=== PATIENT | female | born 1965 | race Caucasian/White ===

== ENCOUNTER 2017-08-22 15:58 | Outpatient (CLI) | payer BC | END 2017-08-22 15:59 | disposition home or self-care (01) | LOC: BICULT 15:58 | PROVIDERS: ATTEND Family Medicine | DX: R60.9 Edema, unspecified (principal) ==

== ENCOUNTER 2018-01-01 19:30 | Outpatient (CLI) | payer BC | END 2018-01-01 19:31 | disposition home or self-care (01) | LOC: SLEEPLAB 19:30 | PROVIDERS: ATTEND Internal Medicine Pulmonary Disease | DX: G47.33 Obstructive sleep apnea (adult) (pediatric) (principal); R40.0 Somnolence; R53.83 Other fatigue; E66.9 Obesity, unspecified; R06.83 Snoring; F41.9 Anxiety disorder, unspecified; G47.00 Insomnia, unspecified; I51.89 Other ill-defined heart diseases; Z68.1 Body mass index [BMI] 19.9 or less, adult | CPT/HCPCS: 95810 ==

== ENCOUNTER 2018-01-07 12:58 | Outpatient (CLI) | payer BC ==
--- NOTE | 2018-01-07 15:28 | ULT ---
RENAL ULTRASOUND: HISTORY: Renal calculi. FINDINGS: Multiple longitudinal and transverse images of the kidneys and bladder were obtained using a Multiher tz curvilinear transducer. Real-time and color flow images are used to evaluate the kidneys. Images demonstrate both kidneys to be of normal contour, axis, and size. The right kidney measures 1 2.9 and the left kidney 13.5 cm from pole to pole. Small area of parenchymal density is seen in the lower pole of the left kidney possibly representing a small lower pole left renal calculus. This may also be artifact. No evidence of hydronephrosis seen. The urinary bladder is visualized. No definite evidence of hydr onephrosis is seen. IMPRESSION: No definite evidence of renal parenchymal lesions. No evidence of hydronephrosis seen. The urinary bladder is unremarkable and partially filled. POS: [facility]
== END 2018-01-07 12:59 | disposition home or self-care (01) ==
LOC: BICULT 12:58
PROVIDERS: ATTEND Urology
DX: N20.0 Calculus of kidney (principal); N28.1 Cyst of kidney, acquired; Q63.8 Other specified congenital malformations of kidney
CPT/HCPCS: 76770

== ENCOUNTER 2019-01-27 14:39 | Outpatient (CLI) | payer BC ==
--- NOTE | 2019-01-27 15:08 | ULT ---
BILATERAL RENAL ULTRASOUND: CLINICAL INDICATION: Renal Insufficiency COMPARISON: 01/07/2018 FINDINGS: Limited visualization of the kidneys due to overlying body wall soft tissues, which decreases sensiti vity of the evaluation. Right kidney: There are a few echogenic foci which could relate to calcifications. No associated hydr onephrosis. Left kidney: A few echogenic foci are present, which could relate to calcifications. No associated hy dronephrosis. Urinary bladder: Mild distention of the urinary bladder. IMPRESSION: There are scattered echogenic foci of the kidneys bilaterally which may relate to small calcification s. There is no overt hydronephrosis of either kidney. Limited visualization of the kidneys due to decreased acoustic penetration from overlying body wall s oft tissues which does decrease sensitivity of the evaluation. Transcribed Date/Time: 01/27/2019 3:32 PM
== END 2019-01-27 14:40 | disposition home or self-care (01) ==
LOC: BICULT 14:39
PROVIDERS: ATTEND Urology
DX: N20.0 Calculus of kidney (principal); N28.1 Cyst of kidney, acquired; Q63.8 Other specified congenital malformations of kidney
CPT/HCPCS: 36415; 76770; 80048; 81003; 81015; 84550

== ENCOUNTER 2019-05-30 15:33 | Emergency (ER) | payer BC ==
[2019-05-30 16:05] LABS: #Eosinphils 0.1 thou/uL (0.0-0.7); #Lymphocytes 1.7 thou/uL (1.20-3.40); #Monocytes 0.4 thou/uL (0.11-0.59); #Neutrophils 7.4 thou/uL (1.40-6.50); %Eosinophils 0.8 % (0.0-10.0); %Lymphocytes 17.6 % (21.0-51.0); %Monocytes 3.8 % (0.0-10.0); %Neutrophils 77.8 % (42.0-75.0); Hemoglobin 13.6 g/dL (12.0-16.0); Mean Corpuscular HGB CONC 31.9 g/dL (32.0-36.0); Mean Corpuscular Hemoglobin 24.5 pg (27.0-31.0); Mean Platelet Volume 9.4 fL (7.4-10.4); Platelet Count 255 thou/uL (130-400); RBC Distribution Width 14.8 % (11.5-14.5); Red Blood Cell (RBC) Count 5.53 mill/uL (4.20-5.40); White Blood Cell (WBC) Count 9.5 thou/uL (4.8-10.8)
[2019-05-30 16:23] LABS: Bacteria/HPF 3+ HPF (None Seen); Bilirubin Negative (Negative); Blood, Urine 3+ (Negative); Clarity Turbid (Clear); Glucose, Urine (Dipstick) Normal (Negative); Leukocyte Negative Leu/uL (Negative); Nitrite Negative (Negative); Protein, Urine (Dipstick) 100 mg/dL (Neg-Trace); RBC/HPF Greater than 50 HPF (0-3); Urobilinogen Normal mg/dL (Less than 2); WBC/HPF 0-3 HPF (0-3)
[2019-05-30 16:27] LABS: Pregnancy Test - Urine (BHCG) Negative (Negative); Pregu Control Background? CLEAR/WHITE (CLR/WHITE); Pregu Control Bar Appear? YES (CONTROL BAR); Specific Gravity 1.029 (1.002-1.036)
[2019-05-30 16:27] LABS: ALT (SGPT) 10 U/L (8-55); AST (SGOT) 14 U/L (5-34); Albumin 3.9 g/dL (3.5-5.0); Alkaline Phosphatase 87 U/L (40-110); Anion Gap 13 mmol/L (10-20); BUN (Urea Nitrogen) 15 mg/dL (9.8-20.1); Bilirubin, Total 0.7 mg/dL (0.2-1.2); Calc. Creatinine Clearance 0 mL/min (70-130); Calcium 9.3 mg/dL (7.8-10.44); Carbon Dioxide 22 mmol/L (22-29); Chloride 107 mmol/L (98-107); Estimated GFR-MDRD 75; Globulin 3.2 g/dL (2.4-3.5); Glucose 95 mg/dL (70-105); Lipase 8 U/L (8-78); Protein, Total 7.1 g/dL (6.0-8.3); Sodium 138 mmol/L (136-145)
[2019-05-30] MEDS ORDERED: Ondansetron PF 4 MG/2 ML Vial ONE (19:02)
[2019-05-30] MEDS ORDERED: Morphine 4 MG/ML VIAL ONE ×2 (19:02→22:30)
[2019-05-30] MEDS ORDERED: Ketorolac Tromethamine 30 MG/ML VIAL ONE (20:01)
== END 2019-05-30 22:57 | disposition home or self-care (01) ==
LOC: ERS 15:33
DX: N12 Tubulo-interstitial nephritis, not specified as acute or chronic (principal); I48.91 Unspecified atrial fibrillation; Z87.442 Personal history of urinary calculi; Z79.891 Long term (current) use of opiate analgesic; Z79.899 Other long term (current) drug therapy; Z79.01 Long term (current) use of anticoagulants
CPT/HCPCS: 36415; 80053; 81003; 81015; 81025; 83690; 85025; 87077; 87086; 96374; 96375; 96376; J1885; J2270; J2405

== ENCOUNTER 2019-06-24 08:35 | Outpatient (CLI) | payer BC ==
--- NOTE | 2019-06-24 10:49 | CT ---
CT ABDOMEN AND PELVIS WITHOUT CONTRAST STONE PROTOCOL: Date: 06/24/2019 HISTORY: Renal stones. COMPARISON: Stone protocol CT from 2016. FINDINGS: Lung bases are clear. No pericardial effusion. Within the right renal pelvis is an ovoid calculus blake suring 5.0 x 4.0 x 6.0 mm. No other calculus within the right renal collecting system. No hydronephro sis. Within the left renal pelvis is another ovoid ellipsoid calculus measuring 9.0 x 6.0 x 5.0 mm. N o left-sided hydronephrosis, although there is some mild fullness of the left renal pelvis with uroth elial thickening, likely sequelae of chronic inflammation. The ureters are without dilatation or calculi. Urinary bladder is without calculus. No dilated loops of large or small bowel. No retroperitoneal or periaortic adenopathy. Noncontrast evaluation of the spleen, liver, and gallbla dder are unremarkable. Fat-containing umbilical hernia. No free intraperitoneal gas or fluid. No acute osseous abnormality. IMPRESSION: Bilateral renal pelvi calculi as described. No hydroureteronephrosis. POS: [facility]
== END 2019-06-24 08:36 | disposition home or self-care (01) ==
LOC: CT 08:35
PROVIDERS: ATTEND Urology
DX: N20.0 Calculus of kidney (principal); E66.01 Morbid (severe) obesity due to excess calories; N28.1 Cyst of kidney, acquired
CPT/HCPCS: 74176; 81001; 87086

== ENCOUNTER 2019-06-30 06:22 | Day surgery (SDC) | payer BC ==
[2019-06-27 09:07] VITALS: BMI 72.6
[2019-06-30] MEDS ORDERED: Iothalamate Meglumine 60% 50 ML VIAL FS ONE (07:04)
[2019-06-30 07:35] LABS: #Eosinphils 0.1 thou/uL (0.0-0.7); #Lymphocytes 1.9 thou/uL (1.20-3.40); #Monocytes 0.5 thou/uL (0.11-0.59); #Neutrophils 5.3 thou/uL (1.40-6.50); %Basophils 0.5 % (0.0-1.0); %Eosinophils 1.7 % (0.0-10.0); %Lymphocytes 23.8 % (21.0-51.0); Hemoglobin 13.8 g/dL (12.0-16.0); Mean Corpuscular HGB CONC 32.6 g/dL (32.0-36.0); Mean Corpuscular Hemoglobin 25.3 pg (27.0-31.0); Mean Corpuscular Volume 77.6 fL (78.0-98.0); Mean Platelet Volume 8.8 fL (7.4-10.4); Platelet Count 251 thou/uL (130-400); RBC Distribution Width 15.5 % (11.5-14.5); Red Blood Cell (RBC) Count 5.46 mill/uL (4.20-5.40); White Blood Cell (WBC) Count 7.8 thou/uL (4.8-10.8)
[2019-06-30] MEDS ORDERED: Levofloxacin 500 mg/D5W 100 ml Premix Bag ONE (07:36)
[2019-06-30 07:42] LABS: Prothrombin Time 12.8 SEC (12.0-14.7)
[2019-06-30 07:58] LABS: Anion Gap 12 mmol/L (10-20); BUN (Urea Nitrogen) 10 mg/dL (9.8-20.1); Calc. Creatinine Clearance 252 mL/min (70-130); Calcium 9.1 mg/dL (7.8-10.44); Carbon Dioxide 25 mmol/L (22-29); Chloride 106 mmol/L (98-107); Estimated GFR-MDRD 71; Glucose 101 mg/dL (70-105); Potassium 4.1 mmol/L (3.5-5.1); Sodium 139 mmol/L (136-145)
--- NOTE | 2019-06-30 08:15 | RAD ---
EXAM: XR Abdomen 1 View/KUB PROVIDED CLINICAL HISTORY: Preoperative evaluation. Renal calculi. COMPARISON: CT abdomen on 06/24/2019 FINDINGS: There are calculi overlying each renal pelvis which were seen on prior CT examination. No additional suspicious calcifications are seen along the expected course of either ureter. Bowel gas pattern is nonspecific. Phleboliths overlie the pelvis. Minimal degenerative changes are seen in the spine. IMPRESSION: Bilateral renal calculi.
--- NOTE | 2019-06-30 08:31 | RAD ---
TWO VIEW CHEST: HISTORY: Preop evaluation. FINDINGS: The lung cam are clear. No infiltrate or vascular congestion. Heart and mediastinum unremarkable . IMPRESSION: No acute process. POS: [facility]
[2019-06-30] MEDS ORDERED: Midazolam HCl 2 mg/2 ml Vial ONE (08:39)
[2019-06-30] MEDS ORDERED: Fentanyl 100 MCG/2 ML VIAL ONE ×2 (08:39→10:38)
[2019-06-30] MEDS ORDERED: SUGAMMADEX SODIUM 500 MG/5 ML VIAL ONE (08:40)
[2019-06-30] MEDS ORDERED: Lidocaine 1% PF 5 ML VIAL ONE (08:53)
[2019-06-30] MEDS ORDERED: Ondansetron PF 4 MG/2 ML Vial ONE ×2 (08:53→12:38)
[2019-06-30] MEDS ORDERED: PROPOFOL 200 MG/20 ML VIAL ONE (08:53)
[2019-06-30] MEDS ORDERED: Rocuronium Bromide 10 MG/ML (10ML VIAL) ONE (08:53)
[2019-06-30] MEDS ORDERED: Succinylcholine Chloride 20 MG/ML 10 ml SYRINGE FS ONE (08:53)
[2019-06-30] MEDS ORDERED: Glycopyrrolate 0.2 MG/ML 5 ML SYRINGE ONE (08:53)
[2019-06-30] MEDS ORDERED: Promethazine HCl 25 MG/ML VIAL ONE ×2 (10:06→11:54)
--- NOTE | 2019-06-30 11:32 | RAD ---
RETROGRADE PYELOGRAM: Date: 06/30/2019 INDICATION: Bilateral lithotripsy procedure. TECHNIQUE: A total of 8 fluoroscopic images presented from OR during intraoperative imaging. FINDINGS/IMPRESSION: Initial imaging shows opacification of the right collecting structures. Final imaging shows placement of a left double pigtail ureteral stent. POS: [facility]
[2019-06-30] MEDS ORDERED: Morphine 2 MG/ML SYRINGE ONE (11:33)
--- NOTE | 2019-06-30 12:21 | OP ---
DATE OF PROCEDURE: 06/30/2019 PREOPERATIVE DIAGNOSES: 1. A 53-year-old morbidly obese female with history of bilateral renal calculi with left lower quadrant abdominal pain. 2. Stone dimensions: Right renal pelvic stone 5 x 4 x 6 mm and left renal pelvic stone 10 mm. POSTOPERATIVE DIAGNOSES: 1. A 53-year-old morbidly obese female with history of bilateral renal calculi with left lower quadrant abdominal pain. 2. Stone dimensions: Right renal pelvic stone 5 x 4 x 6 mm and left renal pelvic stone 10 mm. PROCEDURES PERFORMED: Cystoscopy, bilateral retrograde pyelogram, left balloon dilatation of distal intramural ureter, flexible ureteroscopy, pyeloscopy, laser lithotripsy of large left renal pelvic stone, basket extraction of stone fragments, 6 x 26 double-J ureteral stent placement with distal tail in situ. ANESTHESIA: LMA, general. COMPLICATIONS: None apparent. DISPOSITION: To recovery room in stable condition. SPECIMEN: Stone for chemical analysis. INDICATIONS FOR PROCEDURE AND HISTORY: Ms. Frank is a 53-year-old morbidly obese female, who weighs about 470 pounds, who presented to the emergency room to [facility], then to [facility] Emergency Room due to left lower quadrant abdominal pain. CT demonstrated large left renal pelvic stone, right renal pelvic stone as above , with no evidence of hydronephrosis. She does have left lower quadrant abdominal pain, intermittent in nature, we discussed differential diagnosis. Possible ball valve mechanism of the large renal pelvic stone causing intermittent flank discomfort was discussed with her in detail. I also informed her that I cannot guarantee that her left lower quadrant pain will resolve with stone treatment as I cannot completely exclude that stone is not causing the discomfort per se. However, it is large enough that if it is a ball valve effect and can cause her intermittent discomfort. Her case has been cleared through carpenter/labor, administration to proceed as she is presented to multiple emergency rooms to proceed with stone treatment. Risks and complications of the procedure were reviewed with her in detail including, but not limited to, bleeding, pain, infection, injury to adjacent organs, urosepsis, possible secondary procedure. She has been seen by Cardiology to hold her Eliquis that she has history of atrial fibrillation. DESCRIPTION OF PROCEDURE: After an informed consent was signed, the patient was taken to the operating room, placed in a dorsal lithotomy position with the genitalia prepped and draped in the usual surgical sterile fashion. A 21-Nepalese cystoscope was utilized for cystoscopy. Preoperative KUB demonstrated a large left renal pelvic stone, although the final dictation says that she has right kidney stone as well. I have a hard time seeing a right renal pelvic stone. Bilateral RED hose and SCD were placed and broad-spectrum antibiotics were provided. We did perform bilateral retrograde pyelogram with an open-ended catheter 5-Nepalese demonstrating no evidence of hydronephrosis on the right. Prompt excretion of contrast was noted. At this time, we did pay attention to the left side, where she was having the pain with left retrograde pyelogram. She did have some mild dilatation of the distal ureter; however, this may be due to distending of the contrast as I did not see any obvious filling defect of concern. A large renal pelvic stone was seen that was radiopaque on fluoroscopy. A 0.35 Sensor wire was placed into the left upper pole. Using a [employer] 4-cm 12-Nepalese balloon, we dilated the intramural ureter and distal ureter in 2 segments. Twenty atmosphere was held and a pressure was held for 1 to 2 minutes. With appropriate dilatation, I was able to pass a 10-Nepalese dual-lumen access sheath into the left proximal ureter with ease. A second safety wire of 0.35 Super Stiff wire was placed into the left upper pole. At this time, the dual-lumen access sheath was removed and 11/13- Nepalese x 28 cm navigator was able to be passed with minimal resistance, the level of the mid to proximal ureter. A flexible ureteroscope disposable was utilized over the working wire Super Stiff into the left renal pelvis without difficulty. Stone was easily visualized, which did migrate into the left upper pole. Using 200 micron ball-tip fiber at 1.0 joules, we laser lithotripsied the stone into multiple fragments. Most of the stone debris did fragment into dust-like debris, those that were amenable to be basket extracted were removed with a Zero Tip Nitinol basket and sent for chemical analysis. At the end of the procedure, what was left in situ was just like debris, not of clinical significance. The ureter was surveyed, which demonstrated no evidence of ureteral stones, trauma or perforation of concern. A 6 x 26 double-J ureteral stent was passed over the working wire and the wire completely removed. The stent had a good coil in the kidney and in the distal aspect in the bladder with distal tail left in situ. The bladder was completely emptied and she tolerated the procedure well. She is discharged with tramadol 50, #30; VESIcare 5 mg, #20; ciprofloxacin until followup appointment next week one p.o. b.i.d., until followup appointment; and Azo p.r.n. She is instructed to obtain a KUB one day before her appointment on July 08 at 8:00 a.m. and to hold her Eliquis 2 days prior to her cysto stent pull scheduled for July 09. Job ID: [id number] [facility]
== END 2019-06-30 13:05 | disposition home or self-care (01) ==
LOC: SDC 06:22
PROVIDERS: ATTEND Urology
PROC: 0T768DZ Dilation of Right Ureter with Intraluminal Device, Via Natural or Artificial Opening Endoscopic (ICD-10-PCS; principal; 2019-06-30)
PROC: 0TC38ZZ Extirpation of Matter from Right Kidney Pelvis, Via Natural or Artificial Opening Endoscopic (ICD-10-PCS; principal; 2019-06-30)
DX: N20.0 Calculus of kidney (principal); I48.91 Unspecified atrial fibrillation; E66.01 Morbid (severe) obesity due to excess calories; Z68.45 Body mass index [BMI] 70 or greater, adult; Z79.01 Long term (current) use of anticoagulants; Z79.899 Other long term (current) drug therapy; Z88.0 Allergy status to penicillin; Z88.2 Allergy status to sulfonamides
CPT/HCPCS: 36415; 71046; 74018; 74420; 80048; 82365; 85025; 85610; 85730; 88300; 93005; 93010; C1758; C1769; J1956; J2001; J2250; J2270; J2405; J2550; J2704; J3010

== ENCOUNTER 2019-07-09 10:18 | Outpatient (CLI) | payer BC ==
--- NOTE | 2019-07-09 12:28 | RAD ---
ABDOMEN 1 VIEW: Date: 07/09/2019 HISTORY: Renal calculi. COMPARISON: 06/30/2019. FINDINGS: Left ureteral stent in place. The previously noted left renal calculus is not evident on this study. IMPRESSION: Left ureteral stent. The previously noted left renal calculus is not evidence on this study. POS: [facility]
== END 2019-07-09 10:19 | disposition home or self-care (01) ==
LOC: RAD 10:18
PROVIDERS: ATTEND Urology
DX: N20.0 Calculus of kidney (principal); Z96.0 Presence of urogenital implants
CPT/HCPCS: 74018

== ENCOUNTER 2020-02-13 06:41 | Outpatient (CLI) | payer BC ==
[2020-02-13 14:57] LABS: Hemoglobin 13.3 g/dL (12.0-16.0); Mean Corpuscular HGB CONC 30.4 G/DL (32.0-36.0); Mean Corpuscular Hemoglobin 23.1 PG (27.0-33.0); Mean Corpuscular Volume 75.9 fl (80.0-100.0); Mean Platelet Volume 10.5 fl (7.4-10.4); Platelet Count 325 10x3/uL (130-400); RBC Distribution Width 15.6 % (11.5-14.5); Red Blood Cell (RBC) Count 5.77 10x6/uL (3.90-5.20); White Blood Cell (WBC) Count 6.8 10x3/uL (4.5-11.0)
[2020-02-13 15:14] LABS: Anion Gap 12 mmol/L (10-20); BUN (Urea Nitrogen) 19 mg/dL (9.8-20.1); Calc. Creatinine Clearance 0 mL/min (70-130); Calcium 8.8 mg/dL (7.8-10.44); Carbon Dioxide 24 mmol/L (22-29); Chloride 106 mmol/L (98-107); Estimated GFR-MDRD 74; Glucose 93 mg/dL (70-105); Potassium 4.4 mmol/L (3.5-5.1); Sodium 138 mmol/L (136-145)
[2020-02-13 15:16] LABS: PTT 30.9 sec (22.0-33.0); Prothrombin Time 10.3 sec (9.5-12.1)
[2020-02-14 03:15] LABS: SARS-CoV-2 MS2 Positive; SARS-CoV-2 N Gene Negative; SARS-CoV-2 S Gene Negative; SARS-CoV-2 by NAA Not Detected (NotDetected); SARS-CoV-2 orf1ab Negative
--- NOTE | 2020-02-18 08:31 | EKG ---
Test Reason : PREOP Blood Pressure : / mmHG Vent. Rate : 085 BPM Atrial Rate : 340 BPM P-R Int : 000 ms QRS Dur : 084 ms QT Int : 356 ms P-R-T Axes : 000 072 064 degrees QTc Int : 423 ms Atrial fibrillation Low voltage QRS Abnormal ECG No previous ECGs available Confirmed by PAZ RG MD ([id number]) on 02/18/2020 8:31:35 AM Referred By: Jose HAMMOND Confirmed By:PAZ RG MD
== END 2020-02-13 06:42 | disposition home or self-care (01) ==
LOC: LABBT 06:41
PROVIDERS: ATTEND Urology
DX: Z01.818 Encounter for other preprocedural examination (principal); Z01.812 Encounter for preprocedural laboratory examination; N20.0 Calculus of kidney; E66.01 Morbid (severe) obesity due to excess calories; N28.1 Cyst of kidney, acquired; Q63.8 Other specified congenital malformations of kidney; Z20.828 Contact with and (suspected) exposure to other viral communicable diseases
CPT/HCPCS: 80048; 85027; 85610; 85730; 87635; 93005; 93010; U0003

== ENCOUNTER 2020-02-18 05:45 | Day surgery (SDC) | payer BC ==
[2020-02-17 09:39] VITALS: BMI 71.6
[2020-02-18] MEDS ORDERED: Levofloxacin 500 mg/D5W 100 ml Premix Bag ONE (06:45)
[2020-02-18] MEDS ORDERED: Iothalamate Meglumine 60% 50 ML VIAL FS ONE ×2 (06:49→07:40)
[2020-02-18] MEDS ORDERED: Fentanyl 100 MCG/2 ML VIAL ONE ×2 (07:15→08:37)
--- NOTE | 2020-02-18 07:41 | RAD ---
EXAM: XR Abdomen 1 View/KUB PROVIDED CLINICAL HISTORY: Preop COMPARISON: 07/09/2019 FINDINGS: Interval removal of left ureteral stent. Stable phleboliths overlying the pelvis. No definite radiogr aphically apparent urinary tract calculi. The abdominal bowel gas pattern is nonspecific. The osseous structures demonstrate no acute findings. Visualized lung bases appear clear. IMPRESSION: No radiographically apparent urinary tract calculi.
[2020-02-18] MEDS ORDERED: Phenazopyridine HCl 100 MG TAB ONE (08:32)
[2020-02-18] MEDS ORDERED: Oxybutynin 5 MG TAB ONE (08:32)
--- NOTE | 2020-02-18 08:47 | RAD ---
EXAM: XR IVP Retrograde PROVIDED CLINICAL HISTORY: Ureteral stent placement. COMPARISON: AP abdominal radiograph on 02/18/2020 FINDINGS/IMPRESSION: Initial senior ui designer image does not demonstrate definite urinary tract calculus. Right retrograde urogram wa s performed without dilatation of the renal collecting system or definitive filling defect seen within the right renal collecting system or opacified right ureter. Subsequent images demonstrate huy dewire in place with final image demonstrating right ureteral stent in place. Correlation with intraoperative findings is recommended.
[2020-02-18] MEDS ORDERED: Promethazine HCl 25 MG/ML VIAL ONE ×2 (09:04→12:05)
[2020-02-18] MEDS ORDERED: Morphine 2 MG/ML VIAL ONE ×2 (09:13→10:08)
[2020-02-18] MEDS ORDERED: HYDROcodone/Acetaminophen 5/325 mg Tablet ONE (10:18)
--- NOTE | 2020-02-18 11:20 | OP ---
DATE OF PROCEDURE: 02/18/2020 PREOPERATIVE DIAGNOSIS: A 54-year-old female with morbid obesity with right renal pelvic stone, 12 mm. POSTOPERATIVE DIAGNOSIS: A 54-year-old female with morbid obesity with right renal pelvic stone, 12 mm. PROCEDURES PERFORMED: Cystoscopy, right retrograde pyelogram, balloon dilatation of the distal intramural ureter, flexible ureteroscopy, pyeloscopy with laser lithotripsy of renal pelvic stone, and basket extraction. ANESTHESIA: General. COMPLICATIONS: None apparent. SPECIMEN: None. INTRAOPERATIVE FINDINGS: Large right renal pelvic stone, after laser lithotripsy, stone fragments were too small to basket extract. INDICATIONS FOR THE PROCEDURE AND HISTORY: Ms. Frank is a 54-year-old morbidly obese female who underwent left ureteroscopy back in June. She presented with intermittent right flank pain. Imaging has been challenging due to her morbid obesity, which she weighs about [address] had to be obtained at an outside facility to accommodate her body habitus. CT scan on January 29 at [facility] demonstrated a 12-mm nonobstructing right renal pelvic stone. As this can cause intermittent discomfort, she desired to proceed with ureteroscopy and laser lithotripsy. She is not a candidate for ESWL due to her body habitus. DESCRIPTION OF PROCEDURE: After an informed consent was signed, the patient was taken to the operating room, placed in a dorsal lithotomy position with the genital area prepped and draped in the usual surgical sterile fashion. A 21-Marshallese cystoscope was utilized for cystoscopy, which demonstrated normal bladder mucosa. The UOs are normal in orthotopic position. An open-ended catheter was utilized to intubate the right UO, and a retrograde pyelogram performed demonstrating no significant hydronephrosis. Her perioperative KUB and preoperative KUB are suboptimal due to her morbid obesity. A 0.035 Sensor wire was placed into the right upper pole. At this time, we dilated the intramural ureter with a 15-Marshallese 6- cm balloon dilator of the intramural ureter. Subsequently, a 10-Marshallese dual-lumen access sheath was able to be passed to the proximal ureter, and a second safety wire 0.035 Super Stiff was placed. Over the Super Stiff wire, a 12 x 14-Marshallese navigator was passed gently to the level of the proximal ureter with ease. Subsequently, the working wire was removed with safety wire in situ, and a flexible ureteroscope was advanced to the level of the renal pelvis. The stone was seen in the renal pelvis and pushed to the upper pole and laser lithotripsy with 265 micron laser fiber ball-tip at 1.0 joules was utilized. The stone was quite soft. We laser lithotripsied this into multiple tiny fragments. I attempted to basket; however, the stone fragments were too small to basket, and there were dust-like stone debris which I anticipate she will pass on her own. Survey of the ureter demonstrated no evidence of ureteral mucosa trauma of concern or nor stone nidus. A 6 x 26 double-J ureteral stent with distal tail was then placed into the kidney without significant issues. All wires and navigators were removed. Bladder completely emptied, and she tolerated the procedure well and transported to the recovery room in stable condition. She will follow up with me next for cysto, stent pull under local. Postop medications sent to the patient's pharmacy electronically. Job ID: [id number] [facility]
== END 2020-02-18 12:38 | disposition home or self-care (01) ==
LOC: SDC 05:45
PROVIDERS: ATTEND Urology
PROC: 0TC38ZZ Extirpation of Matter from Right Kidney Pelvis, Via Natural or Artificial Opening Endoscopic (ICD-10-PCS; principal; 2020-02-18)
PROC: 0T768DZ Dilation of Right Ureter with Intraluminal Device, Via Natural or Artificial Opening Endoscopic (ICD-10-PCS; principal; 2020-02-18)
DX: N20.0 Calculus of kidney (principal); N28.1 Cyst of kidney, acquired; Q63.8 Other specified congenital malformations of kidney; I48.91 Unspecified atrial fibrillation; G47.30 Sleep apnea, unspecified; E66.01 Morbid (severe) obesity due to excess calories; Z68.45 Body mass index [BMI] 70 or greater, adult; Z79.01 Long term (current) use of anticoagulants; Z79.899 Other long term (current) drug therapy; Z88.0 Allergy status to penicillin; Z88.2 Allergy status to sulfonamides
CPT/HCPCS: 74018; 74420; J1956; J2270; J2550; J3010